=== PATIENT | female | born 1955 ===

== ENCOUNTER → 2018-07-09 18:37 | Outpatient (REF) | payer OTHER, SELFPAY ==
[2018-07-09 19:31] LABS: Ferritin 13.1 ng/mL (11.1-264)
== END ==
LOC: LAB 18:37
PROVIDERS: Visit Provider Family Medicine
DX: D64.9 Anemia, unspecified (principal)
CPT/HCPCS: 36415; 82728

== ENCOUNTER → 2018-09-08 19:13 | Outpatient (REF) | payer OTHER, SELFPAY | LOC: LAB 19:13 | PROVIDERS: Visit Provider Family Medicine | DX: D64.9 Anemia, unspecified (principal) | CPT/HCPCS: 36415; 82728 ==